=== PATIENT | female | born 1955 | race Hispanic/Latino ===

== ENCOUNTER 2017-02-19 22:20 | Emergency (ER) | payer OTHER ==
[~2017-02-19] VITALS: Ht 157.5 cm; Wt 70.8 kg
[~2017-02-19 22:20] MED LIST: AUGMENTIN 875-1 EACH PO; IBUPROFEN600 M1 PO; LISINOPRIL-HCT1 EAC1 PO; TESSALON PERLE100 M1 PO
--- NOTE | 2017-02-19 23:47 | ED HEADACHE COMPLAINT ---
History of Present Illness General Chief Complaint: Eye Problems Stated Complaint: RIGHT EYE RED, TERRELL'S X 1 MONTH Source: patient Exam Limitations: no limitations Vital Signs & Intake/Output Vital Signs & Intake/Output Vital Signs Date Time Temp Pulse Resp B/P B/P Pulse O2 O2 Flow FiO2 Mean Ox Delivery Rate 02/20 0105 56 16 111/58 98 Room Air 02/19 2239 97.9 64 18 103/65 96 Room Air ED Intake and Output 02/20 0000 02/19 1200 Intake Total Output Total Balance Patient 156 lb Weight Weight Estimated Measurement Method Allergies Coded Allergies: No Known Allergies (09/21/16) Reconcile Medications Amoxicillin/Potassium Clav (Augmentin 875-125 Tablet) 875 MG-125 MG TABLET 1 TAB PO BID bronchitis Benzonatate (Tessalon Perle) 100 MG CAPSULE 1 CAP PO TID PRN cough Ibuprofen 600 MG TABLET 1 TAB PO TID PRN pain with food Ibuprofen 800 MG TABLET 1 TAB PO TID PRN pain Lisinopril/Hydrochlorothiazide (Lisinopril-Hctz 20-25 MG Tab) 20 MG-25 MG TABLET 1 TAB PO DAILY HTMN (Reported) Triage Note: RECEIVED 62 YO FEMALE C/O HEADACHES X ONE MONTH. PT TAKES ADVIL FOR PAIN RELIEF, BUT IN THE LAST 24 HOURS, ADVIL IS NOT HELPING. PT ALSO REPORTS RIGHT EYE REDDENED. + NAUSEA, NO PHOTOPHOBIA, Triage Nurses Notes Reviewed? yes Onset: Gradual Duration: week(s):, waxing and waning Timing: recent history Quality/Severity: moderate Head Injury Location: global Modifying Factors: Improves With: rest. Associated Symptoms: right eye redness HPI: 61 yo woman with headache x 1 month, and 1 day history of right eye redness, slightly itchy, without significant discharge. She has no fever, chills, vision changes, nausea, vomiting, chest pain. She notes her headache waxes and wanes. She is otherwise well. Past History Travel History Traveled to [place] past 21 day No Medical History Any Pertinent Medical History? see below for history Neurological: NONE EENT: NONE Cardiovascular: hypertension Respiratory: NONE Gastrointestinal: NONE Hepatic: NONE Renal: NONE Musculoskeletal: NONE Psychiatric: NONE Endocrine: NONE Surgical History Surgical History: none Psychosocial History What is your primary language Tuval[place] Tobacco Use: Never used Family History Hx Contributory? No Review of Systems Review of Systems Constitutional: Reports: no symptoms. Eyes: Reports: no symptoms. Ears, Nose, Throat, Mouth: Reports: no symptoms. Respiratory: Reports: no symptoms. Cardiovascular: Reports: no symptoms. Gastrointestinal/Abdominal: Reports: no symptoms. Genitourinary: Reports: no symptoms. Musculoskeletal: Reports: no symptoms. Skin: Reports: no symptoms. Neurological/Psychological: Reports: no symptoms. Hematologic/Endocrine: Reports: no symptoms. Endocrine: Reports: no symptoms. Immunologic/Allergic: Reports: no symptoms. All Other Systems: Reviewed and Negative Physical Exam Physical Exam General Appearance: well developed/nourished, mild distress Head: atraumatic, normal appearance, mild tenderness at occiput musculature Eyes: Right: other (conj. injection, no discharge). Bilateral: PERRL, EOMI. Ears, Nose, Throat: normal pharynx, normal ENT inspection, hearing grossly normal Neck: normal inspection, supple, full range of motion, trachea midline Respiratory: normal breath sounds, chest non-tender, no respiratory distress, quiet respiration, lungs clear Cardiovascular: regular rate/rhythm Gastrointestinal: normal bowel sounds, soft, non-tender, no organomegaly Back: normal inspection, normal range of motion Extremities: normal inspection, normal capillary refill, normal range of motion, no edema Cranial Nerves: normal hearing, normal speech, PERRL Coordination/Gait: normal finger to nose, normal gait Motor/Sensory: no motor/sensory deficits Reflexes: 1+: bicep (R), bicep (L). Skin: intact, normal color, warm/dry Core Measures Severe Sepsis Present: No Septic Shock Present: No Progress Differential Diagnosis: migraine TERRELL, musculoskeletal pain, sinusitis, conjunctivitis vs other. Plan of Care: Orders Procedure Date/time Status CT HEAD WO IV CONTRAST 02/20 2348 Active Current Medications Sig/Pito Start time Last Medication Dose Stop Time Status Admin Acetaminophen 975 MG ONCE ONE 02/19 2345 UNVr (Tylenol) 02/19 2346 Diagnostic Imaging: Viewed by Me: CT Scan. Discussed w/RAD: CT Scan. Comments: PATIENT: KORINA ALMAGUER PRESENT AGE: 61 PATIENT ACCOUNT NO: [id number] : 59 LOCATION: [facility] ORDERING PHYSICIAN: MEI ZAPATA MD SERVICE DATE: 02/19/17 EXAM TYPE: CAT - CT HEAD WO IV CONTRAST EXAMINATION: CT HEAD WITHOUT CONTRAST CLINICAL INFORMATION: Headache for one month COMPARISON: 08/22/2008 TECHNIQUE: Contiguous axial imaging was performed from the skull base to vertex without intravenous contrast. DLP: 561 mGy-cm. FINDINGS: There is no evidence of acute intracranial hemorrhage or territorial infarction. No abnormal mass effect or midline shift is seen. Wright to white matter differentiation is well preserved. No extra-axial fluid collections are identified. No hydrocephalus. No significant volume loss. There is no abnormal attenuation within the brain parenchyma. The osseous structures and soft tissues are normal. The mastoid air cells and visualized portions of the paranasal sinuses are well aerated. IMPRESSION: No acute intracranial pathology. DICTATED BY: JOSE LANDA MD DATE/TIME DICTATED:02/20/1738 SCOOPING MACHINE TENDER:YOSSI DATE/TIME TRANSCRIBED:02/20/1738 CONFIDENTIAL, DO NOT COPY WITHOUT APPROPRIATE AUTHORIZATION. <Electronically signed in Other Vendor System> SIGNED BY: SYEDA MALCOLM,JOSE 02/20 0049 Departure Departure Disposition: HOME OR SELF CARE Condition: Stable Clinical Impression Primary Impression: Conjunctivitis Secondary Impressions: Headache Referrals: MUSTAPHA FRANK MD (PCP/Family) Departure Forms: Customer Survey General Discharge Information Prescriptions: Current Visit Scripts Ibuprofen 1 TAB PO TID PRN pain #60 TAB Comments 02/19/17, 23:57 pt with 20/25 vision in both eyes with glasses. 02/20/17, 0:15... pt feels better after supportive medications. Pt safe for discharge... gave rx for polytrim and ibuprofen... pt to follow up with PMD and optho tomorrow.
--- NOTE | 2017-02-20 00:49 | CT SCAN REPORT ---
EXAMINATION: CT HEAD WITHOUT CONTRAST CLINICAL INFORMATION: Headache for one month COMPARISON: 08/22/2008 TECHNIQUE: Contiguous axial imaging was performed from the skull base to vertex without intravenous contrast. DLP: 561 mGy-cm. FINDINGS: There is no evidence of acute intracranial hemorrhage or territorial infarction. No abnormal mass effect or midline shift is seen. Wright to white matter differentiation is well preserved. No extra-axial fluid collections are identified. No hydrocephalus. No significant volume loss. There is no abnormal attenuation within the brain parenchyma. The osseous structures and soft tissues are normal. The mastoid air cells and visualized portions of the paranasal sinuses are well aerated. IMPRESSION: No acute intracranial pathology.
[2017-02-20] MEDS ORDERED: IBUPROFEN800 M1 PO (01:03)
[2017-02-20 01:05] VITALS: BP 111/58
== END 2017-02-20 01:10 ==
LOC: ERH 22:20
DX: H10.9 Unspecified conjunctivitis (principal); R51 Headache